=== PATIENT | male | born 1940 | race Caucasian/White ===

== ENCOUNTER 2019-09-26 14:09 | Outpatient (CLI) | payer MEDICARE, BC ==
[~2019-09-26 14:09] MED LIST: Magnevist 469MG/ML 20 ML VIAL ONE
--- NOTE | 2019-09-26 15:54 | MRI ---
MR OF THE PELVIS WITH AND WITHOUT CONTRAST INDICATION: Elevated PSA with history of a prostate biopsy one year ago. COMPARISON: None TECHNIQUE: Multiplanar, multisequence MR images were obtained of the pelvis with and without IV contr ast. 18 cc of MultiHance was utilized for the examination. The examination was reviewed on a separate [employer] 3-D workstation for multiplanar metric evaluation. FINDINGS: Prostate size: The prostate measured 4.4 x 3.4 x 3.7cm. 26.88 cc. Peripheral zone: No area of restricted diffusion is seen within the peripheral zone. Mild wavy areas of diminished T2 signal are seen within the peripheral zone which can be seen following prostatitis. Central zone: No suspicious signal abnormality or focal lesion. There are numerous BPH nodule seen wi thin the central zone. Neural vasculature: No evidence of neurovascular invasion Regional lymphadenopathy: None Dynamic contrast enhancement: Negative. Osseous structures: No suspicious osseous lesion is identified. Additional findings: There is scattered colonic diverticulosis. There is mild circumferential wall th ickening of the bladder.. IMPRESSION: 1. PIRADS 2- Low (clinically significant cancer is unlikely to be present.) 2. Mild wall thickening of the bladder may reflect prior therapy changes from the patient's history o f bladder cancer. 3. Colonic diverticulosis
== END 2019-09-26 14:10 | disposition home or self-care (01) ==
LOC: TBSIIMAG 14:09
PROVIDERS: ATTEND Urology
DX: R97.20 Elevated prostate specific antigen [PSA] (principal); K57.30 Diverticulosis of large intestine without perforation or abscess without bleeding; N32.89 Other specified disorders of bladder
CPT/HCPCS: 72197; 82565; A9579

== ENCOUNTER 2019-11-04 20:15 | Observation (INO) | payer MEDICARE, BC ==
[~2019-11-04 20:15] MED LIST changes: +Iopamidol-370 76% 500 ML 1 ML ONE; -Magnevist 469MG/ML 20 ML VIAL ONE
[2019-11-04 21:27] LABS: Bilirubin Negative (Negative); Blood, Urine Negative (Negative); Clarity Clear (Clear); Glucose, Urine (Dipstick) Normal (Negative); Leukocyte Negative Leu/uL (Negative); Nitrite Negative (Negative); Protein, Urine (Dipstick) Negative (Neg-Trace); Urobilinogen Normal mg/dL (Less than 2)
[2019-11-04 21:28] LABS: #Eosinphils 0.4 thou/uL (0.0-0.7); #Lymphocytes 1.5 thou/uL (1.20-3.40); #Monocytes 0.7 thou/uL (0.11-0.59); #Neutrophils 6.3 thou/uL (1.40-6.50); %Basophils 0.5 % (0.0-1.0); %Eosinophils 4.3 % (0.0-10.0); %Lymphocytes 16.7 % (21.0-51.0); %Neutrophils 70.5 % (42.0-75.0); Hemoglobin 15.5 g/dL (14.0-18.0); Mean Corpuscular HGB CONC 32.9 g/dL (32.0-36.0); Mean Corpuscular Hemoglobin 30.7 pg (27.0-31.0); Mean Corpuscular Volume 93.3 fL (78.0-98.0); Mean Platelet Volume 6.5 fL (7.4-10.4); Platelet Count 310 thou/uL (130-400); RBC Distribution Width 12.7 % (11.5-14.5); Red Blood Cell (RBC) Count 5.04 mill/uL (4.70-6.10); White Blood Cell (WBC) Count 8.9 thou/uL (4.8-10.8)
--- NOTE | 2019-11-04 21:28 | CT ---
CT Brain WO Con HISTORY: Seizure. COMPARISON: 05/07/2010 study. FINDINGS: There is mild ventricular and sulcal prominence. There are no signs of intracerebral hemorr tricia or extra-axial fluid collections. The mastoid air cells are clear. There is mild ethmoid and maxillary sinus mucosal disease. IMPRESSION: No acute intracranial abnormalities.
[2019-11-04] MEDS ORDERED: levETIRAcetam In NaCl (Iso-Os) 1,000 MG in Premix Bag 1 BAG IVPB SCH (21:30)
--- NOTE | 2019-11-04 21:30 | RAD ---
XR Chest 1 View Portable HISTORY: Syncope COMPARISON: None. FINDINGS: Heart size within normal limits. There are atherosclerotic changes of aorta. The lungs are clear of infiltrates. Arthritic changes of both shoulders noted. IMPRESSION: No active intrathoracic disease.
[2019-11-04 21:40] LABS: ALT (SGPT) 15 U/L (8-55); AST (SGOT) 17 U/L (5-34); Alkaline Phosphatase 69 U/L (40-110); Anion Gap 19 mmol/L (10-20); BUN (Urea Nitrogen) 15 mg/dL (8.4-25.7); Bilirubin, Total 0.2 mg/dL (0.2-1.2); CK (CPK) 113 U/L (30-200); Calc. Creatinine Clearance 0 mL/min (70-130); Calcium 9.3 mg/dL (7.8-10.44); Carbon Dioxide 21 mmol/L (23-31); Chloride 105 mmol/L (98-107); Estimated GFR-MDRD 86; Globulin 3.2 g/dL (2.4-3.5); Glucose 102 mg/dL (83-110); Lipase 65 U/L (8-78); Potassium 3.9 mmol/L (3.5-5.1); Protein, Total 7.2 g/dL (5.8-8.1); Sodium 141 mmol/L (136-145)
--- NOTE | 2019-11-04 22:13 | CT ---
CTA Angio Chest W WO Con HISTORY: Syncopal episode. COMPARISON: None. FINDINGS: The lungs are clear of any infiltrative process. No pulmonary nodules are identified. No pl eural effusions. No significant mediastinal or hilar lymphadenopathy. The thoracic aorta is mildly tortuous but normal in caliber. There is good pulmonary artery opacification, there is no CT evidence for pulmonary embolus. Visualized liver parenchyma shows no focal findings. The gallbladder has been removed. IMPRESSION: No CT evidence for pulmonary embolus.
[2019-11-05] MEDS ORDERED: Ondansetron PF 4 MG/2 ML Vial IVP PRN ×2 (00:12→07:26)
[2019-11-05] MEDS ORDERED: Sodium Chloride 0.9% 1,000 ML IV SCH (00:12)
[2019-11-05] MEDS ORDERED: Ondansetron ODT 4 MG TAB SL PRN (00:12)
[2019-11-05] MEDS ORDERED: Lorazepam 2 MG/ML VIAL SLOW IVP PRN (00:12)
[2019-11-05 01:38] LABS: Troponin I Less than 0.010 ng/mL (< 0.028)
[2019-11-05 02:13] VITALS: BMI 24.9
[2019-11-05 04:17] LABS: Troponin I Less than 0.010 ng/mL (< 0.028)
[2019-11-05] MEDS ORDERED: Calcium Carbonate 500 MG ChewTAB PO PRN (07:22)
[2019-11-05] MEDS ORDERED: Acetaminophen 325 MG TAB PO PRN (07:22)
[2019-11-05] MEDS ORDERED: Zolpidem Tartrate 5 MG TAB PO PRN (07:22)
[2019-11-05] MEDS ORDERED: Loperamide HCl 2 MG CAP PO PRN (07:22)
[2019-11-05] MEDS ORDERED: Bisacodyl 10 MG SUPP PR PRN (07:22)
[2019-11-05] MEDS ORDERED: Loratadine 10 MG TAB PO PRN (07:23)
[2019-11-05] MEDS ORDERED: Diabetic Tussin 200 MG/10 ML UDCUP PO PRN (07:23)
[2019-11-05] MEDS ORDERED: Cepastat Lozenges 1 LOZ PO PRN (07:23)
[2019-11-05] MEDS ORDERED: hydrALAZINE 20 MG/ML VIAL SLOW IVP PRN (07:23)
[2019-11-05] MEDS ORDERED: Senokot S 8.6-50 MG TAB PO PRN (07:23)
[2019-11-05] MEDS ORDERED: Artificial Tears 18 DROP/0.9 ML EA EYE PRN (07:23)
[2019-11-05] MEDS ORDERED: Sodium Chloride 0.65% Nasal 44 ML BOT EA NARE PRN (07:23)
[2019-11-05] MEDS ORDERED: Ondansetron ODT 4 MG TAB PO PRN (07:26)
--- NOTE | 2019-11-05 08:53 | ULT ---
Carotid duplex sonogram HISTORY: Syncope. Vascular disease. FINDINGS: Right: Minimal plaque. Color and spectral Doppler evaluation, peak systolic velocity of 84 cm/s, and IC to CC ratio 1.1 suggest no hemodynamically significant stenosis within the extracranial right ICA. Antegrade flow within the vertebral artery. Left: Color and spectral Doppler evaluation, peak systolic velocity of 90 cm/s, and IC to CC ratio 1. 1 suggest no hemodynamically significant stenosis within the extracranial left ICA. Antegrade flow within the vertebral artery. IMPRESSION: Normal exam.
[2019-11-05] MEDS ORDERED: levETIRAcetam 500 mg/5 ml Oral Solution PO SCH (09:00)
[2019-11-05] MEDS ORDERED: Atorvastatin Calcium 10 MG TAB PO SCH ×2 (09:00→21:00)
[2019-11-05] MEDS: Enoxaparin Sodium 40 MG/0.4 ML SYRINGE SC SCH (09:04)
[2019-11-05] MEDS: Vit A,C & E/Lutein/Minerals Tablet PO SCH ×2 (09:04→21:21)
[2019-11-05] MEDS: levETIRAcetam 500 mg/5 ml Oral Solution PO SCH ×2 (09:04→21:17)
[2019-11-05] MEDS: Famotidine 20 MG TAB PO SCH ×2 (09:04→21:22)
[2019-11-05] MEDS: Levothyroxine Sodium 50 MCG TAB PO SCH (09:05)
--- NOTE | 2019-11-05 10:11 | PDOC.EVN ---
Event Note - Event Note Event Note: pt seen and examined, H & P to follow
--- NOTE | 2019-11-05 10:45 | MRI ---
MRI BRAIN WITH AND WITHOUT IV CONTRAST: HISTORY: Seizure COMPARISON: 05/07/2010 CORRELATION:CT scan of previous day FINDINGS: No restricted diffusion is seen. No evidence of infarct, hemorrhage, mass, midline shift or abnormal extra-axial fluid collections is noted. No abnormal postcontrast enhancement is seen. The ventricular size is appropriate and the basilar cisterns are patent. There are few foci of T2 prolongation in the periventricular white matter, consistent with mild chron ic small vessel ischemic disease. There is mucosal disease in the paranasal sinuses. IMPRESSION: No evidence of acute intracranial process or mass.
--- NOTE | 2019-11-05 11:48 | CON ---
DATE OF CONSULTATION: 11/05/2019 CONSULTING PHYSICIAN: Hospitalist Service. IMPRESSION: Recurrent seizure. PLAN: 1. Increase Keppra to 750 mg twice a day. 2. Office followup. HISTORY OF PRESENT ILLNESS: Mr. Bruner is a 79-year-old gentleman, who has a history of blackouts dating back to 2000. He was initially evaluated by Dr. Garcia. His diagnosis was not definitively confirmed until several years later. In 2010, he was started on Dilantin. He was having side effects to it and was switched over to Keppra. He has done reasonably well since then. He reports that in October, his witnessed an episode with some salivating at the mouth and subsequent trauma to his tongue and incontinence of urine. He was very difficult to arouse. They did not seek any changes in treatment at that point just prior to this admission. He was standing in the bathroom when he lost consciousness suddenly. His found him on the floor. He does not recall several minutes of events. She helped him up to the toilet seat, where he subsequently woke up. He has been incontinent of both bowel and bladder. He came in here. His prolactin level was 23. His CT scan of the brain was unremarkable. His Keppra level was 9.4. His vital signs have been stable with some diastolic pressures are in the mid 90s. He has been afebrile. He is without any particular complaints at this point. PAST MEDICAL HISTORY: Hypertension, hypothyroidism, and seizure disorder. ALLERGIES: SULFA, PENICILLIN. SOCIAL HISTORY: No tobacco or alcohol. FAMILY HISTORY: Noncontributory. REVIEW OF SYSTEMS: Ten-system review of systems is otherwise negative. PHYSICAL EXAMINATION: GENERAL: He is a healthy-appearing elderly gentleman, in no distress. VITAL SIGNS: Blood pressure 177/97, pulse 83, respirations 16, and temperature 98. HEENT: Pupils are equal and reactive. Conjunctivae are clear. Cranium, mild abrasion on the forehead noted. NECK: Supple. EXTREMITIES: No cyanosis, clubbing, or edema. NEUROLOGIC: He is alert and appropriate. His speech is fluent and clear. Cranial nerves are intact. He has equal strength. Sensations intact. No abnormal movements were seen. The gait is steady and narrow based. LABORATORY STUDIES: Unremarkable CBC. TSH was 1.95. Urine was clear. SUMMARY: This is a 79-year-old gentleman with a known seizure disorder. He had a breakthrough seizure and a relatively low Keppra level. I agree with the increase in dose. We will be happy to follow up with him as an outpatient. Job ID: [id number]
--- NOTE | 2019-11-05 18:32 | HP ---
PRIMARY CARE PHYSICIAN: [facility]. REASON FOR ADMISSION: Seizure. HISTORY OF PRESENT ILLNESS: A 79-year-old male with past medical history of seizure disorder, who is taking Keppra, who was brought to emergency room because the patient was found on the floor. The patient reports that he went to his closet and when he banded and suddenly, he lost consciousness and he found on his closet by his and subsequently with the help of neighbor, he was taken and then the patient regained consciousness at that time. He found himself on toilet seat, the patient had incontinence of both bowel and bladder. Prolactin level was elevated when he arrived to emergency room and CT brain was unremarkable. His Keppra level was 9.4. The patient was otherwise hemodynamically stable. In the emergency room, the patient had a CT angiography, which was negative for PE and chest x-ray was normal. Subsequently, the patient had carotid Doppler and MRI, which came back normal. Echocardiography also came back normal. This patient has a history of seizure disorder and his workup in the past was unremarkable. He was initially followed by Dr. Garcia and subsequently, he was started on Dilantin, but he did not tolerate it well and that is why he was kept on Keppra, and with Keppra, he was doing much better up until now. PAST MEDICAL HISTORY: Hypertension, hypothyroidism, seizure disorder. PAST SURGICAL HISTORY: Double hernia repair, partial thyroidectomy, cholecystectomy. PAST PSYCHIATRIC HISTORY: Anxiety and depression. ALLERGIES: SULFA AND PENICILLIN. SOCIAL HISTORY: The patient is , lives at home with his . The patient drinks 3-4 glasses of wine, but no smoking. No alcohol. FAMILY HISTORY: No family history of coronary artery disease, stroke, or cancer. REVIEW OF SYSTEMS: CONSTITUTIONAL: Negative for weight loss or gain, ability to conduct usual activities. SKIN: Negative for rash, itching. EYES: Negative for double vision, pain. ENT/MOUTH: Negative for nose bleeding, neck stiffness, pain, tenderness. CARDIOVASCULAR: Negative for palpitations, dyspnea on exertion, orthopnea. RESPIRATORY: Negative for shortness of breath, wheezing, cough, hemoptysis, fever or night sweats. GASTROINTESTINAL: Negative for poor appetite, abdominal pain, heartburn, nausea, vomiting, constipation, or diarrhea. GENITOURINARY: Negative for urgency, frequency, dysuria, nocturia. MUSCULOSKELETAL: Negative for pain, swelling. NEUROLOGIC/PSYCHIATRIC: Negative for anxiety, depression. ALLERGY/IMMUNOLOGIC: Negative for skin rash, bleeding tendency. Please see my HPI for pertinent positives and negatives. All other review of systems reviewed and negative except as mentioned in HPI. HOME MEDICATIONS: 1. Lipitor 10 mg p.o. daily. 2. Keppra 500 mg p.o. b.i.d. 3. Synthroid 50 mcg p.o. daily. 4. PreserVision vitamin 1 tablet p.o. daily. EMERGENCY ROOM COURSE: The patient was given Keppra 1000 mg and IV fluid. PHYSICAL EXAMINATION: VITAL SIGNS: On arrival, blood pressure 162/86, pulse 62, respiratory rate 18, temperature 98.6, saturation 98% on room air. Weight 68 kg. GENERAL: The patient is alert and oriented x3. HEENT: Head, normocephalic and atraumatic. Eyes, pupils round, reactive to light. Extraocular muscle intact. ENT, oropharynx within normal limits. Moist mucous membranes. No oral lesion. No pharyngeal erythema. No exudate. NECK: Supple. No JVD. No meningeal signs of irritation. LUNGS: Clear to auscultation without any rhonchi or rales. CARDIAC: S1 and S2 regular. No murmur. No gallop. No rub. ABDOMEN: Soft, bowel sounds present, nontender, nondistended. No organomegaly. No mass. EXTREMITIES: No edema. NEUROLOGIC: Nonfocal examination. SIGNIFICANT LABORATORY DATA: CBC; WBC 8.9, hemoglobin 15.5, platelet 310. D-dimer 0.49. BMP; sodium 141, potassium 3.9, chloride 105, carbon dioxide 21, BUN 15, creatinine 0.86, glucose 102, calcium 9.3. LFT; AST 17, ALT 15, alkaline phosphatase 69, albumin 4.0. Troponin 0.020, CK 113. BNP 35.6. Ammonia 51, prolactin 23.1, TSH 1.95. Urinalysis normal. Keppra level 9.4. CT brain, no acute intracranial process. CT angio, no PE. Chest x-ray normal. MRI brain, no acute intracranial process. Carotid Doppler, no acute stenosis. Echocardiography showed normal EF. ASSESSMENT: 1. Syncope, most likely related with a seizure. 2. Recurrent seizure with current episode most likely explained by seizure. 3. Dyslipidemia. 4. Hypothyroidism. PLAN: 1. The patient's workup so far completely negative. We will observe 24 hour. Neurologic consultation is already done. We will increase Keppra to 750 mg twice daily. We will consider discharging him home tomorrow. Home medication reconciled. Plan of care discussed with the patient. 2. Deep venous thrombosis prophylaxis, Lovenox 40 mg subcu daily. 3. GI prophylaxis, Pepcid 20 mg p.o. b.i.d. CODE STATUS: The patient is full code. DISPOSITION PLAN: Within 24 hours. Plan of care discussed with the patient in detail. Job ID: [id number]
[2019-11-06 04:31] LABS: #Basophils 0.1 thou/uL (0.0-0.2); #Eosinphils 0.3 thou/uL (0.0-0.7); #Lymphocytes 1.5 thou/uL (1.20-3.40); #Monocytes 0.8 thou/uL (0.11-0.59); #Neutrophils 4.2 thou/uL (1.40-6.50); %Basophils 0.9 % (0.0-1.0); %Eosinophils 4.8 % (0.0-10.0); %Lymphocytes 21.9 % (21.0-51.0); %Monocytes 11.4 % (0.0-10.0); Hemoglobin 14.5 g/dL (14.0-18.0); Mean Corpuscular HGB CONC 32.4 g/dL (32.0-36.0); Mean Corpuscular Hemoglobin 30.9 pg (27.0-31.0); Mean Corpuscular Volume 95.1 fL (78.0-98.0); Platelet Count 252 thou/uL (130-400); RBC Distribution Width 12.7 % (11.5-14.5); Red Blood Cell (RBC) Count 4.69 mill/uL (4.70-6.10); White Blood Cell (WBC) Count 6.8 thou/uL (4.8-10.8)
[2019-11-06 04:54] LABS: Anion Gap 11 mmol/L (10-20); BUN (Urea Nitrogen) 11 mg/dL (8.4-25.7); Calc. Creatinine Clearance 74 mL/min (70-130); Calcium 8.3 mg/dL (7.8-10.44); Carbon Dioxide 27 mmol/L (23-31); Chloride 107 mmol/L (98-107); Estimated GFR-MDRD 90; Glucose 91 mg/dL (83-110); Potassium 3.7 mmol/L (3.5-5.1); Sodium 141 mmol/L (136-145)
[2019-11-06 07:55] VITALS: BP 158/93; TEMP 97.4
[2019-11-06] MEDS: Levothyroxine Sodium 50 MCG TAB PO SCH (09:13)
[2019-11-06] MEDS: levETIRAcetam 500 mg/5 ml Oral Solution PO SCH (09:13)
[2019-11-06] MEDS: Vit A,C & E/Lutein/Minerals Tablet PO SCH (09:13)
[2019-11-06] MEDS: Enoxaparin Sodium 40 MG/0.4 ML SYRINGE SC SCH (09:16)
--- NOTE | 2019-11-06 10:09 | DIS ---
DATE OF ADMISSION: 11/04/2019 DATE OF DISCHARGE: 11/06/2019 PRIMARY CARE PHYSICIAN: [facility] Admission. DISCHARGE DISPOSITION: Home. PRIMARY DISCHARGE DIAGNOSIS: Syncope/seizure. SECONDARY DISCHARGE DIAGNOSES: 1. Hypothyroidism. 2. Dyslipidemia. 3. Seizure disorder. PRIMARY PROCEDURE/OPERATION: None. RADIOLOGICAL INVESTIGATION: CT brain negative for any acute intracranial process. CT angiography, which was done for elevated D-dimer, negative for any pulmonary embolism. Chest x-ray negative for any acute cardiopulmonary process. Carotid Doppler negative for any stenosis. MRI brain negative for any acute process. Echocardiography showed normal EF. SIGNIFICANT LABORATORY DATA: WBC 6.8, hemoglobin 14.5, and platelets are 252. D-dimer 0.49. Sodium 141, potassium 3.7, BUN 11, creatinine 0.83, calcium 8.3. Cardiac enzyme, negative. Prolactin 23.1. TSH 1.95. Urinalysis, normal urine. Keppra level, 9.4. DISCHARGE MEDICATIONS: 1. Keppra 750 mg p.o. b.i.d. 2. Synthroid 50 mcg p.o. daily. 3. Lipitor 10 mg daily. 4. Multivitamin one capsule p.o. b.i.d. CONTRAINDICATION: None. CODE STATUS: Full code. INPATIENT ENDLESS BELT FINISHER: Dr. Lyles, Neurology was consulted while in hospital. TEST RESULT PENDING ON DISCHARGE: None. ALLERGIES: SULFA AND PENICILLIN. DISCHARGE PLAN: Posthospital, the patient will follow up with Neurology as instructed. HOSPITAL COURSE: A 79-year-old male with above-mentioned medical problem, who was admitted by me. Please see my HPI for further details. The patient was having sudden syncope/seizure in his closet and the patient lost consciousness for short time. There was an elevated prolactin level and Keppra level was slightly low and suspected seizure activity. The patient was evaluated in the emergency room. He had slightly elevated D-dimer and that is why CT angio was negative. Chest x-ray was normal and CT brain was normal. MRI brain, carotid Doppler, and echocardiography, all tests came back normal. The patient was evaluated by Neurology as well. The patient was completely asymptomatic while in hospital and he did not have any further syncopal or seizure activity and his telemetry remained unremarkable. The patient was seen and examined at bedside today. PHYSICAL EXAMINATION: VITAL SIGNS: Currently, temperature 97.4, pulse rate 62, respiratory rate 20, saturation 98% on room air, blood pressure 158/93, weight 154 pounds. GENERAL: The patient is currently alert and oriented x3. HEENT: HEAD , normocephalic and atraumatic. Eyes; pupils are round and reactive to light. Extraocular muscle intact. ENT, oropharynx within normal limits. Moist mucous membranes. No oral lesion. No pharyngeal erythema. No exudate. NECK: Supple. No JVD. No meningeal signs of irritation. LUNGS: Clear to auscultation without any rhonchi or rales. CARDIAC: S1 and S2, regular without any murmur. No gallop. No rub. ABDOMEN: Soft, bowel sounds present, nontender, and nondistended. No organomegaly. No mass. EXTREMITIES: No edema. NEUROLOGIC: Nonfocal examination. Overall, the patient is medically stable for discharge today. Job ID: [id number]
[2019-11-06] MEDS: Famotidine 20 MG TAB PO SCH (21:47)
== END 2019-11-06 12:32 | disposition home or self-care (01) ==
LOC: ERS 20:15 → INTOOBSV 22:19 → 2SE 22:19 → ERS 23:44
PROVIDERS: ADMIT Internal Medicine; ATTEND Internal Medicine
DX: G40.909 Epilepsy, unspecified, not intractable, without status epilepticus (principal); R55 Syncope and collapse; I10 Essential (primary) hypertension; F41.9 Anxiety disorder, unspecified; F32.9 Major depressive disorder, single episode, unspecified; E78.5 Hyperlipidemia, unspecified; E89.0 Postprocedural hypothyroidism; Z79.899 Other long term (current) drug therapy; Z88.0 Allergy status to penicillin; Z88.2 Allergy status to sulfonamides
CPT/HCPCS: 70450; 70553; 71045; 71275; 80048; 80177; 81003; 82140; 82550; 83690; 83880; 84146; 84484 ×3; 85025; 85379; 93005; 93306; 93880; 96365; 99285; G0378; 36415; 80053; 84443; J1650; J1953; Q9967

== ENCOUNTER 2022-08-05 08:30 | Outpatient (CLI) | payer MEDICARE, BC ==
[2022-08-05] MEDS ORDERED: Magnevist 469MG/ML 20 ML VIAL ONE (15:05)
== END 2022-08-05 08:31 | disposition home or self-care (01) ==
LOC: TBSIIMAG 08:30
PROVIDERS: ATTEND Urology
DX: R97.20 Elevated prostate specific antigen [PSA] (principal); K57.30 Diverticulosis of large intestine without perforation or abscess without bleeding
CPT/HCPCS: 72197; 82565; A9579

== ENCOUNTER 2022-12-15 08:27 | Inpatient (IN) | payer MEDICARE, BC ==
[2022-12-15] MEDS ORDERED: Iopamidol-370 76% 500 ML 1 ML ONE (09:43)
[2022-12-15 10:30] LABS: #Basophils 0.1 thou/uL (0.0-0.2); #Eosinphils 0.3 thou/uL (0.0-0.7); #Lymphocytes 1.4 thou/uL (1.20-3.40); #Monocytes 0.9 thou/uL (0.11-0.59); #Neutrophils 6.1 thou/uL (1.40-6.50); %Basophils 0.8 % (0.0-1.0); %Eosinophils 3.1 % (0.0-10.0); %Lymphocytes 15.7 % (21.0-51.0); %Monocytes 10.6 % (0.0-10.0); %Neutrophils 69.8 % (42.0-75.0); Hemoglobin 16.2 g/dL (14.0-18.0); Mean Corpuscular HGB CONC 33.7 g/dL (32.0-36.0); Mean Corpuscular Volume 97.9 fl (78.0-98.0); Mean Platelet Volume 6.2 fL (7.4-10.4); Platelet Count 366 10x3/uL (130-400); RBC Distribution Width 12.2 % (11.5-14.5); Red Blood Cell (RBC) Count 4.92 mill/uL (4.70-6.10); White Blood Cell (WBC) Count 8.8 10x3/uL (4.8-10.8)
[2022-12-15 10:52] LABS: ALT (SGPT) 15 U/L (8-55); AST (SGOT) 18 U/L (5-34); Alkaline Phosphatase 70 U/L (40-110); Anion Gap 13 mmol/L (10-20); BUN (Urea Nitrogen) 16 mg/dL (8.4-25.7); Bilirubin, Total 0.6 mg/dL (0.2-1.2); Calc. Creatinine Clearance 0 mL/min (70-130); Calcium 9.6 mg/dL (7.8-10.44); Carbon Dioxide 27 mmol/L (23-31); Chloride 104 mmol/L (98-107); Estimated GFR 84; Globulin 3.7 g/dL (2.4-3.5); Glucose 100 mg/dL (83-110); Lipase 48 U/L (8-78); Potassium 5.3 mmol/L (3.5-5.1); Protein, Total 7.7 g/dL (5.8-8.1); Sodium 139 mmol/L (136-145)
[2022-12-15] MEDS ORDERED: Cefepime 2 GM VIAL ONE (13:08)
[2022-12-15] MEDS ORDERED: Ondansetron ODT 4 MG TAB PO PRN (14:10)
[2022-12-15] MEDS ORDERED: Acetaminophen 325 MG TAB PO PRN (14:10)
[2022-12-15] MEDS ORDERED: Acetaminophen 650 MG Suppository PR PRN (14:10)
[2022-12-15] MEDS ORDERED: Ondansetron PF 4 MG/2 ML Vial IVP PRN (14:10)
[2022-12-15 14:36] VITALS: BMI 23.7
[2022-12-15] MEDS ORDERED: metroNIDAZOLE 500 MG in Premix Bag 1 BAG IVPB SCH (14:45)
[2022-12-15] MEDS: Atorvastatin Calcium 10 MG TAB PO SCH (21:01)
[2022-12-15] MEDS: levETIRAcetam 500 MG TAB PO SCH (21:01)
[2022-12-15] MEDS: cefTRIAXone\\ROCEPHIN 1 GM in Sodium Chloride 0.9% 100 ML IVPB SCH (21:01)
[2022-12-15] MEDS ORDERED: diphenhydrAMINE 25 MG CAP PO SCH (21:45)
[2022-12-15] MEDS: metroNIDAZOLE 500 MG in Premix Bag 1 BAG IVPB SCH (21:54)
[2022-12-16] MEDS: metroNIDAZOLE 500 MG in Premix Bag 1 BAG IVPB SCH ×3 (05:02→21:05)
[2022-12-16] MEDS: Levothyroxine Sodium 50 MCG TAB PO SCH (05:02)
[2022-12-16 06:31] LABS: #Eosinphils 0.3 thou/uL (0.0-0.7); #Lymphocytes 1.2 thou/uL (1.20-3.40); #Monocytes 0.7 thou/uL (0.11-0.59); #Neutrophils 5.5 thou/uL (1.40-6.50); %Basophils 0.6 % (0.0-1.0); %Eosinophils 4.2 % (0.0-10.0); %Lymphocytes 15.5 % (21.0-51.0); %Monocytes 9.1 % (0.0-10.0); %Neutrophils 70.6 % (42.0-75.0); Hemoglobin 14.4 g/dL (14.0-18.0); Mean Corpuscular HGB CONC 33.7 g/dL (32.0-36.0); Mean Corpuscular Hemoglobin 32.8 pg (27.0-31.0); Mean Corpuscular Volume 97.3 fl (78.0-98.0); Mean Platelet Volume 6.2 fL (7.4-10.4); Platelet Count 325 10x3/uL (130-400); RBC Distribution Width 12.2 % (11.5-14.5); Red Blood Cell (RBC) Count 4.38 mill/uL (4.70-6.10); White Blood Cell (WBC) Count 7.8 10x3/uL (4.8-10.8)
[2022-12-16 06:54] LABS: Anion Gap 11 mmol/L (10-20); BUN (Urea Nitrogen) 10 mg/dL (8.4-25.7); Calc. Creatinine Clearance 73 mL/min (70-130); Calcium 8.5 mg/dL (7.8-10.44); Carbon Dioxide 25 mmol/L (23-31); Chloride 107 mmol/L (98-107); Estimated GFR 91; Glucose 96 mg/dL (83-110); Potassium 3.9 mmol/L (3.5-5.1); Sodium 139 mmol/L (136-145)
[2022-12-16] MEDS: levETIRAcetam 500 MG TAB PO SCH ×2 (08:25→20:17)
[2022-12-16] MEDS: cefTRIAXone\\ROCEPHIN 1 GM in Sodium Chloride 0.9% 100 ML IVPB SCH (20:17)
[2022-12-16] MEDS: Atorvastatin Calcium 10 MG TAB PO SCH (20:17)
[2022-12-17] MEDS: Levothyroxine Sodium 50 MCG TAB PO SCH (05:12)
[2022-12-17] MEDS: metroNIDAZOLE 500 MG in Premix Bag 1 BAG IVPB SCH (05:12)
[2022-12-17 06:33] LABS: #Eosinphils 0.3 thou/uL (0.0-0.7); #Lymphocytes 1.3 thou/uL (1.20-3.40); #Monocytes 0.7 thou/uL (0.11-0.59); #Neutrophils 4.4 thou/uL (1.40-6.50); %Basophils 0.7 % (0.0-1.0); %Eosinophils 3.8 % (0.0-10.0); %Monocytes 10.5 % (0.0-10.0); Hemoglobin 14.1 g/dL (14.0-18.0); Mean Corpuscular Hemoglobin 33.3 pg (27.0-31.0); Mean Corpuscular Volume 98.1 fl (78.0-98.0); Mean Platelet Volume 6.3 fL (7.4-10.4); Platelet Count 321 10x3/uL (130-400); RBC Distribution Width 12.3 % (11.5-14.5); Red Blood Cell (RBC) Count 4.22 mill/uL (4.70-6.10); White Blood Cell (WBC) Count 6.7 10x3/uL (4.8-10.8)
[2022-12-17 06:54] LABS: Anion Gap 12 mmol/L (10-20); BUN (Urea Nitrogen) 10 mg/dL (8.4-25.7); Calc. Creatinine Clearance 74 mL/min (70-130); Calcium 8.6 mg/dL (7.8-10.44); Carbon Dioxide 24 mmol/L (23-31); Chloride 109 mmol/L (98-107); Estimated GFR 91; Glucose 98 mg/dL (83-110); Potassium 3.8 mmol/L (3.5-5.1); Sodium 141 mmol/L (136-145)
[2022-12-17 08:10] VITALS: TEMP 97.6
[2022-12-17] MEDS: levETIRAcetam 500 MG TAB PO SCH (08:33)
[2022-12-17 11:40] VITALS: BP 129/76
== END 2022-12-17 11:56 | disposition home or self-care (01) | DRG 392 ==
LOC: ERS 08:27 → T4-A 12:40
PROVIDERS: ADMIT Family Medicine; ATTEND Internal Medicine
PROC: 0W9G3ZZ Drainage of Peritoneal Cavity, Percutaneous Approach (ICD-10-PCS; principal; 2022-12-16)
DX: K57.20 Diverticulitis of large intestine with perforation and abscess without bleeding (principal); F32.A Depression, unspecified; E03.9 Hypothyroidism, unspecified; F10.10 Alcohol abuse, uncomplicated; Z20.822 Contact with and (suspected) exposure to COVID-19; G40.909 Epilepsy, unspecified, not intractable, without status epilepticus; Z90.49 Acquired absence of other specified parts of digestive tract; Z98.890 Other specified postprocedural states; Z88.2 Allergy status to sulfonamides; Z88.0 Allergy status to penicillin
CPT/HCPCS: 36415; 74177; 80048; 80053; 83605; 83690; 85025; 87070; 87205; 96365; J0692; J0696; J3490; Q9967; U0003; U0005

== ENCOUNTER 2023-01-20 08:13 | Inpatient (IN) | payer MEDICARE, BC ==
[2023-01-20 08:56] LABS: #Eosinphils 0.1 thou/uL (0.0-0.7); #Lymphocytes 0.8 thou/uL (1.20-3.40); #Monocytes 1.4 thou/uL (0.11-0.59); #Neutrophils 8.9 thou/uL (1.40-6.50); %Basophils 0.1 % (0.0-1.0); %Lymphocytes 7.5 % (21.0-51.0); %Monocytes 12.6 % (0.0-10.0); %Neutrophils 78.8 % (42.0-75.0); Hemoglobin 15.5 g/dL (14.0-18.0); Mean Corpuscular HGB CONC 32.4 g/dL (32.0-36.0); Mean Corpuscular Hemoglobin 31.7 pg (27.0-31.0); Mean Corpuscular Volume 97.9 fl (78.0-98.0); Mean Platelet Volume 6.1 fL (7.4-10.4); Platelet Count 352 10x3/uL (130-400); RBC Distribution Width 12.6 % (11.5-14.5); White Blood Cell (WBC) Count 11.3 10x3/uL (4.8-10.8)
[2023-01-20 09:11] LABS: Bilirubin Negative (Negative); Blood, Urine Negative (Negative); Clarity Clear (Clear); Glucose, Urine (Dipstick) Normal (Negative); Ketone, Urine 20 mg/dL (Negative); Leukocyte Negative Leu/uL (Negative); Nitrite Negative (Negative); Protein, Urine (Dipstick) 20 mg/dL (Neg-Trace); Specific Gravity, Urine 1.019 (1.002-1.036); Urobilinogen Normal mg/dL (Less than 2)
[2023-01-20 09:20] LABS: ALT (SGPT) 12 U/L (8-55); AST (SGOT) 14 U/L (5-34); Albumin 3.7 g/dL (3.4-4.8); Alkaline Phosphatase 85 U/L (40-110); Anion Gap 12 mmol/L (10-20); BUN (Urea Nitrogen) 11 mg/dL (8.4-25.7); Bilirubin, Total 0.9 mg/dL (0.2-1.2); Calc. Creatinine Clearance 0 mL/min (70-130); Calcium 9.1 mg/dL (7.8-10.44); Carbon Dioxide 27 mmol/L (23-31); Chloride 101 mmol/L (98-107); Estimated GFR 88; Glucose 105 mg/dL (83-110); Lipase 29 U/L (8-78); Magnesium 2.2 mg/dL (1.6-2.6); Potassium 4.1 mmol/L (3.5-5.1); Protein, Total 7.7 g/dL (5.8-8.1); Sodium 136 mmol/L (136-145)
[2023-01-20] MEDS ORDERED: Iopamidol-370 76% 500 ML MDV (1 ML CHARGE) ONE (09:55)
[2023-01-20] MEDS ORDERED: Calcium Carbonate 500 MG ChewTAB PO PRN (10:21)
[2023-01-20] MEDS ORDERED: Senokot S 8.6-50 MG TAB PO PRN (10:21)
[2023-01-20] MEDS ORDERED: HYDROcodone/Acetaminophen 5/325 mg Tablet PO PRN (10:21)
[2023-01-20] MEDS ORDERED: Ondansetron ODT 4 MG TAB PO PRN (10:21)
[2023-01-20] MEDS ORDERED: Ondansetron PF 4 MG/2 ML Vial IVP PRN (10:21)
[2023-01-20] MEDS ORDERED: Lidocaine 1% w/Epinephrine 1:100K 20 ML VIAL ONE (13:52)
[2023-01-20 14:47] VITALS: BMI 24.2
[2023-01-20] MEDS ORDERED: Piperacillin/Tazobactam 3.375 GM in Sodium Chloride 0.9% 100 ML IVPB SCH (19:00)
[2023-01-20] MEDS: Acetaminophen 325 MG TAB PO PRN (20:39)
[2023-01-20] MEDS: levETIRAcetam 500 MG TAB PO SCH (20:40)
[2023-01-20] MEDS: Atorvastatin Calcium 10 MG TAB PO SCH (20:40)
[2023-01-20] MEDS: Piperacillin/Tazobactam 3.375 GM in Sodium Chloride 0.9% 100 ML IVPB SCH (23:27)
[2023-01-21] MEDS: Levothyroxine Sodium 50 MCG TAB PO SCH (05:38)
[2023-01-21 05:48] LABS: #Eosinphils 0.1 thou/uL (0.0-0.7); #Lymphocytes 0.8 thou/uL (1.20-3.40); #Monocytes 1.3 thou/uL (0.11-0.59); #Neutrophils 9.6 thou/uL (1.40-6.50); %Basophils 0.1 % (0.0-1.0); %Eosinophils 1.2 % (0.0-10.0); %Monocytes 10.7 % (0.0-10.0); Hemoglobin 14.4 g/dL (14.0-18.0); Mean Corpuscular HGB CONC 32.2 g/dL (32.0-36.0); Mean Corpuscular Hemoglobin 31.4 pg (27.0-31.0); Mean Corpuscular Volume 97.4 fl (78.0-98.0); Mean Platelet Volume 6.2 fL (7.4-10.4); Platelet Count 322 10x3/uL (130-400); RBC Distribution Width 12.4 % (11.5-14.5); Red Blood Cell (RBC) Count 4.57 mill/uL (4.70-6.10); White Blood Cell (WBC) Count 11.9 10x3/uL (4.8-10.8)
[2023-01-21 06:05] LABS: ALT (SGPT) 13 U/L (8-55); AST (SGOT) 13 U/L (5-34); Albumin 3.5 g/dL (3.4-4.8); Alkaline Phosphatase 77 U/L (40-110); Anion Gap 13 mmol/L (10-20); BUN (Urea Nitrogen) 13 mg/dL (8.4-25.7); Bilirubin, Total 0.5 mg/dL (0.2-1.2); Calc. Creatinine Clearance 69 mL/min (70-130); Calcium 8.8 mg/dL (7.8-10.44); Carbon Dioxide 24 mmol/L (23-31); Chloride 104 mmol/L (98-107); Estimated GFR 89; Globulin 3.4 g/dL (2.4-3.5); Glucose 109 mg/dL (83-110); Protein, Total 6.9 g/dL (5.8-8.1); Sodium 137 mmol/L (136-145)
[2023-01-21] MEDS: Piperacillin/Tazobactam 3.375 GM in Sodium Chloride 0.9% 100 ML IVPB SCH ×2 (08:09→15:48)
[2023-01-21] MEDS: levETIRAcetam 500 MG TAB PO SCH ×2 (08:10→21:11)
[2023-01-21] MEDS: Acetaminophen 325 MG TAB PO PRN (08:17)
[2023-01-21] MEDS ORDERED: SUGAMMADEX SODIUM 200 MG/2 ML VIAL ONE (11:20)
[2023-01-21] MEDS ORDERED: fentaNYL PF 100 MCG/2 ML SYRINGE ONE (11:20)
[2023-01-21] MEDS ORDERED: NEOSTIGMINE 3 MG/3 ML SYR 3 MG/3 ML SYRINGE ONE (13:06)
[2023-01-21] MEDS ORDERED: PROPOFOL 200 MG/20 ML VIAL ONE (13:06)
[2023-01-21] MEDS ORDERED: Esmolol 100 MG/10 ML VIAL ONE (13:06)
[2023-01-21] MEDS ORDERED: Ondansetron PF 4 MG/2 ML Vial ONE (13:06)
[2023-01-21] MEDS ORDERED: Lidocaine 1% PF 5 ML VIAL ONE (13:06)
[2023-01-21] MEDS ORDERED: Rocuronium Bromide 10 MG/ML (10ML VIAL) ONE (13:06)
[2023-01-21] MEDS ORDERED: Glycopyrrolate 0.2 MG/ML 5 ML SYRINGE ONE (13:06)
[2023-01-21] MEDS ORDERED: Bupivacaine/Epinephrine 0.25% 30 ML VIAL ONE (13:19)
[2023-01-21] MEDS ORDERED: Piperacillin/Tazobactam 3.375 GM VIAL ONE (13:23)
[2023-01-21] MEDS ORDERED: Labetalol HCl 100 MG/20 ML VIAL ONE (13:55)
[2023-01-21] MEDS ORDERED: HYDROcodone/Acetaminophen 7.5/325 mg Tablet PO PRN (14:25)
[2023-01-21] MEDS ORDERED: FENTANYL 50 MCG/ML 1 ML VIAL ONE ×2 (14:51→15:06)
[2023-01-21] MEDS: Atorvastatin Calcium 10 MG TAB PO SCH (21:11)
[2023-01-22] MEDS: Piperacillin/Tazobactam 3.375 GM in Sodium Chloride 0.9% 100 ML IVPB SCH ×3 (01:10→17:16)
[2023-01-22] MEDS: Levothyroxine Sodium 50 MCG TAB PO SCH (05:11)
[2023-01-22] MEDS: Acetaminophen 325 MG TAB PO PRN ×2 (05:13→20:33)
[2023-01-22 07:23] LABS: #Neutrophils 9.7 thou/uL (1.40-6.50); %Basophils 0.1 % (0.0-1.0); %Eosinophils 0.2 % (0.0-10.0); %Lymphocytes 8.5 % (21.0-51.0); %Monocytes 8.2 % (0.0-10.0); %Neutrophils 83.1 % (42.0-75.0); Hemoglobin 14.4 g/dL (14.0-18.0); Mean Corpuscular HGB CONC 32.8 g/dL (32.0-36.0); Mean Corpuscular Hemoglobin 32.4 pg (27.0-31.0); Mean Corpuscular Volume 98.6 fl (78.0-98.0); Mean Platelet Volume 6.3 fL (7.4-10.4); Platelet Count 362 10x3/uL (130-400); RBC Distribution Width 12.4 % (11.5-14.5); Red Blood Cell (RBC) Count 4.44 mill/uL (4.70-6.10); White Blood Cell (WBC) Count 11.6 10x3/uL (4.8-10.8)
[2023-01-22 07:46] LABS: ALT (SGPT) 15 U/L (8-55); AST (SGOT) 13 U/L (5-34); Albumin 3.4 g/dL (3.4-4.8); Alkaline Phosphatase 86 U/L (40-110); Anion Gap 12 mmol/L (10-20); BUN (Urea Nitrogen) 9 mg/dL (8.4-25.7); Bilirubin, Total 0.4 mg/dL (0.2-1.2); Calc. Creatinine Clearance 74 mL/min (70-130); Calcium 8.9 mg/dL (7.8-10.44); Carbon Dioxide 25 mmol/L (23-31); Chloride 103 mmol/L (98-107); Estimated GFR 91; Globulin 3.8 g/dL (2.4-3.5); Glucose 105 mg/dL (83-110); Magnesium 2.1 mg/dL (1.6-2.6); Protein, Total 7.2 g/dL (5.8-8.1); Sodium 136 mmol/L (136-145)
[2023-01-22] MEDS: levETIRAcetam 500 MG TAB PO SCH ×2 (08:18→20:34)
[2023-01-22] MEDS: Amoxicillin/Potassium Clav 875 MG TAB PO SCH (20:33)
[2023-01-22] MEDS: Atorvastatin Calcium 10 MG TAB PO SCH (20:34)
[2023-01-23] MEDS: Acetaminophen 325 MG TAB PO PRN ×2 (02:02→20:12)
[2023-01-23] MEDS: Levothyroxine Sodium 50 MCG TAB PO SCH (06:08)
[2023-01-23] MEDS: traMADol HCl 50 MG TAB PO PRN (06:10)
[2023-01-23 06:33] LABS: #Eosinphils 0.2 thou/uL (0.0-0.7); #Lymphocytes 1.2 thou/uL (1.20-3.40); #Monocytes 0.6 thou/uL (0.11-0.59); #Neutrophils 3.7 thou/uL (1.40-6.50); %Basophils 0.1 % (0.0-1.0); %Eosinophils 3.3 % (0.0-10.0); %Lymphocytes 21.8 % (21.0-51.0); %Monocytes 10.3 % (0.0-10.0); %Neutrophils 64.5 % (42.0-75.0); Hemoglobin 13.4 g/dL (14.0-18.0); Mean Corpuscular HGB CONC 33.4 g/dL (32.0-36.0); Mean Corpuscular Hemoglobin 32.9 pg (27.0-31.0); Mean Corpuscular Volume 98.5 fl (78.0-98.0); Platelet Count 349 10x3/uL (130-400); RBC Distribution Width 12.5 % (11.5-14.5); Red Blood Cell (RBC) Count 4.08 mill/uL (4.70-6.10); White Blood Cell (WBC) Count 5.7 10x3/uL (4.8-10.8)
[2023-01-23] MEDS: levETIRAcetam 500 MG TAB PO SCH ×2 (08:43→20:13)
[2023-01-23] MEDS: Amoxicillin/Potassium Clav 875 MG TAB PO SCH (08:43)
[2023-01-23] MEDS: metroNIDAZOLE 500 MG TAB PO SCH ×2 (16:00→20:14)
[2023-01-23] MEDS: Atorvastatin Calcium 10 MG TAB PO SCH (20:13)
[2023-01-24] MEDS: Levothyroxine Sodium 50 MCG TAB PO SCH (05:44)
[2023-01-24] MEDS: traMADol HCl 50 MG TAB PO PRN (05:48)
[2023-01-24] MEDS: levETIRAcetam 500 MG TAB PO SCH ×2 (09:21→19:51)
[2023-01-24] MEDS: metroNIDAZOLE 500 MG TAB PO SCH ×3 (09:21→19:52)
[2023-01-24] MEDS ORDERED: cloNIDine 0.1 MG TAB PO PRN (09:25)
[2023-01-24] MEDS: Atorvastatin Calcium 10 MG TAB PO SCH (19:51)
[2023-01-24] MEDS ORDERED: Ketorolac Tromethamine 30 MG/ML VIAL IVP SCH (21:45)
[2023-01-24] MEDS ORDERED: Ketorolac Tromethamine 30 MG/ML VIAL IVP PRN (22:01)
[2023-01-25] MEDS: Levothyroxine Sodium 50 MCG TAB PO SCH (06:19)
[2023-01-25] MEDS ORDERED: Hydrocortisone 1% Cream 30 GM TUBE TOP PRN (08:12)
[2023-01-25] MEDS: levETIRAcetam 500 MG TAB PO SCH (09:27)
[2023-01-25] MEDS: metroNIDAZOLE 500 MG TAB PO SCH (09:27)
[2023-01-25] MEDS: traMADol HCl 50 MG TAB PO PRN (09:50)
[2023-01-25 15:23] VITALS: BP 127/81; TEMP 97.4
== END 2023-01-25 15:50 | disposition home health service (06) | DRG 356 ==
LOC: ERS 08:13 → ERHOLD 10:25 → SJJU 14:30
PROVIDERS: ADMIT Internal Medicine; ATTEND Family Medicine
PROC: 0WPF0JZ Removal of Synthetic Substitute from Abdominal Wall, Open Approach (ICD-10-PCS; principal; 2023-01-21)
PROC: 0W9G0ZZ Drainage of Peritoneal Cavity, Open Approach (ICD-10-PCS; 2023-01-21)
PROC: 0J980ZZ Drainage of Abdomen Subcutaneous Tissue and Fascia, Open Approach (ICD-10-PCS; 2023-01-21)
DX: K57.20 Diverticulitis of large intestine with perforation and abscess without bleeding (principal); K65.1 Peritoneal abscess; T85.79XA Infection and inflammatory reaction due to other internal prosthetic devices, implants and grafts, initial encounter; L02.211 Cutaneous abscess of abdominal wall; L02.214 Cutaneous abscess of groin; G40.909 Epilepsy, unspecified, not intractable, without status epilepticus; E78.5 Hyperlipidemia, unspecified; E03.9 Hypothyroidism, unspecified; F10.10 Alcohol abuse, uncomplicated; Y83.8 Other surgical procedures as the cause of abnormal reaction of the patient, or of later complication, without mention of misadventure at the time of the procedure; Z88.2 Allergy status to sulfonamides; Z79.899 Other long term (current) drug therapy; Z79.890 Hormone replacement therapy
CPT/HCPCS: 36415; 36416; 74177; 80053; 81003; 83605; 83690; 83735; 85025; 87040; 87070; 87077; 87086; 87186; 87205; 93005; 97139; J1650; J2405; J2543; J2704; J3010; J3490; Q9967

== ENCOUNTER 2023-04-15 05:37 | Inpatient (IN) | payer MEDICARE, BC ==
[2023-04-15] MEDS ORDERED: Ketorolac Tromethamine 30 MG/ML VIAL ONE (06:20)
[2023-04-15] MEDS ORDERED: Acetaminophen 500 MG TAB ONE (06:20)
[2023-04-15] MEDS ORDERED: Bupivacaine/Epinephrine 0.25% 30 ML VIAL ONE (06:40)
[2023-04-15] MEDS ORDERED: fentaNYL 50 mcg/mL 1 mL Vial ONE (06:48)
[2023-04-15] MEDS ORDERED: Vasopressin 20 UNITS/ML VIAL ONE (06:48)
[2023-04-15] MEDS ORDERED: fentaNYL PF 100 MCG/2 ML SYRINGE ONE (06:48)
[2023-04-15] MEDS ORDERED: Phenylephrine 10 MG/ML VIAL ONE (06:48)
[2023-04-15] MEDS ORDERED: CEFAZOLIN 2 GM VIAL ONE (07:21)
[2023-04-15] MEDS ORDERED: Sodium Chloride 0.9% 100 ML ONE (07:21)
[2023-04-15] MEDS ORDERED: Dexmedetomidine 200 MCG/2 ML VIAL ONE (07:28)
[2023-04-15] MEDS ORDERED: SUGAMMADEX SODIUM 200 MG/2 ML VIAL ONE (07:28)
[2023-04-15] MEDS ORDERED: Ondansetron PF 4 MG/2 ML Vial ONE (07:33)
[2023-04-15] MEDS ORDERED: Lidocaine 1% PF 5 ML VIAL ONE (07:33)
[2023-04-15] MEDS ORDERED: PROPOFOL 200 MG/20 ML VIAL ONE (07:33)
[2023-04-15] MEDS ORDERED: Dexamethasone 20 MG/5 ML VIAL ONE (07:33)
[2023-04-15] MEDS ORDERED: Rocuronium Bromide 10 MG/ML (10ML VIAL) ONE (07:33)
[2023-04-15] MEDS ORDERED: ePHEDrine Sulfate 50 MG/10 ML VIAL ONE (07:33)
[2023-04-15] MEDS ORDERED: Ondansetron PF 4 MG/2 ML Vial IVP PRN (09:26)
[2023-04-15] MEDS ORDERED: Morphine 4 MG/ML VIAL SLOW IVP PRN (09:26)
[2023-04-15] MEDS ORDERED: Dextrose 50% Abboject 50 ML SYRINGE SLOW IVP PRN (09:26)
[2023-04-15] MEDS ORDERED: HYDROcodone/Acetaminophen 7.5/325 mg Tablet PO PRN (09:26)
[2023-04-15] MEDS ORDERED: Dextrose 5% in Water 1,000 ML IV PRN (09:26)
[2023-04-15] MEDS ORDERED: Morphine 2 MG/ML VIAL SLOW IVP PRN (09:26)
[2023-04-15] MEDS ORDERED: Glucagon 1 MG/ML KIT IM PRN (09:26)
[2023-04-15 11:22] VITALS: BMI 23.3
[2023-04-15] MEDS ORDERED: TETANUS, DIPHTHERIA TOX,ADULT (TDVAX) 0.5 ML VIAL IM ONE (12:00)
[2023-04-15] MEDS: Sodium Chloride 0.9% 1,000 ML IV SCH ×2 (12:11→23:21)
[2023-04-15] MEDS: levETIRAcetam 500 MG TAB PO SCH (20:41)
[2023-04-15] MEDS: Vit A,C & E/Lutein/Minerals Tablet PO SCH (20:41)
[2023-04-15] MEDS: Vancomycin 1 GM in Premix Bag 1 BAG IVPB SCH (20:42)
[2023-04-15] MEDS ORDERED: Atorvastatin Calcium 10 MG TAB PO SCH (21:00)
[2023-04-16 06:05] LABS: #Eosinphils 0.1 thou/uL (0.0-0.7); #Monocytes 0.9 thou/uL (0.11-0.59); #Neutrophils 8.1 thou/uL (1.40-6.50); %Basophils 0.3 % (0.0-1.0); %Eosinophils 0.8 % (0.0-10.0); %Lymphocytes 15.2 % (21.0-51.0); %Monocytes 8.5 % (0.0-10.0); %Neutrophils 74.8 % (42.0-75.0); Hemoglobin 13.2 g/dL (14.0-18.0); Mean Corpuscular HGB CONC 32.9 g/dL (32.0-36.0); Mean Corpuscular Volume 94.1 fl (78.0-98.0); Mean Platelet Volume 8.8 fL (7.4-10.4); Platelet Count 316 10x3/uL (130-400); RBC Distribution Width 15.4 % (11.5-14.5); Red Blood Cell (RBC) Count 4.26 mill/uL (4.70-6.10); White Blood Cell (WBC) Count 10.8 10x3/uL (4.8-10.8)
[2023-04-16] MEDS: Vancomycin 1 GM in Premix Bag 1 BAG IVPB SCH ×2 (06:13→06:21)
[2023-04-16] MEDS: Sodium Chloride 0.9% 1,000 ML IV SCH (06:14)
[2023-04-16 07:15] VITALS: TEMP 97.4
[2023-04-16] MEDS: levETIRAcetam 500 MG TAB PO SCH (08:34)
[2023-04-16] MEDS: Vit A,C & E/Lutein/Minerals Tablet PO SCH (08:34)
[2023-04-16] MEDS ORDERED: Levothyroxine Sodium 50 MCG TAB PO SCH (09:00)
[2023-04-16 11:35] VITALS: BP 156/78
== END 2023-04-16 15:12 | disposition home or self-care (01) | DRG 908 ==
LOC: SDC 05:37 → T4-B 11:10 → OBSVTOIN 04-16 14:23
PROVIDERS: ADMIT Specialist; ATTEND Specialist
PROC: 0WPF0JZ Removal of Synthetic Substitute from Abdominal Wall, Open Approach (ICD-10-PCS; principal; 2023-04-15)
PROC: 3E033XZ Introduction of Vasopressor into Peripheral Vein, Percutaneous Approach (ICD-10-PCS; 2023-04-15)
DX: T85.79XA Infection and inflammatory reaction due to other internal prosthetic devices, implants and grafts, initial encounter (principal); L02.214 Cutaneous abscess of groin; E78.00 Pure hypercholesterolemia, unspecified; F32.A Depression, unspecified; Z88.2 Allergy status to sulfonamides; Z98.890 Other specified postprocedural states; Z79.899 Other long term (current) drug therapy; Z82.49 Family history of ischemic heart disease and other diseases of the circulatory system
CPT/HCPCS: 36415; 85025; 87070; 87077; 87186; 87205; 97139; J1100; J1885; J2272; J2370; J2405; J2704; J3010; J3372; J3490; J7050

== ENCOUNTER 2023-04-28 10:30 | Inpatient (IN) | payer MEDICARE, BC ==
[~2023-04-28 10:30] MED LIST changes: -Iopamidol-370 76% 500 ML 1 ML ONE; +Iopamidol-370 76% 500 ML MDV (1 ML CHARGE) ONE
[2023-04-28 11:31] LABS: #Basophils 0.1 thou/uL (0.0-0.2); #Monocytes 1.9 thou/uL (0.11-0.59); #Neutrophils 18.8 thou/uL (1.40-6.50); %Basophils 0.2 % (0.0-1.0); %Lymphocytes 3.4 % (21.0-51.0); %Monocytes 8.6 % (0.0-10.0); %Neutrophils 86.7 % (42.0-75.0); Hemoglobin 11.9 g/dL (14.0-18.0); Mean Corpuscular HGB CONC 32.3 g/dL (32.0-36.0); Mean Corpuscular Hemoglobin 30.1 pg (27.0-31.0); Mean Corpuscular Volume 93.2 fl (78.0-98.0); Mean Platelet Volume 8.3 fL (7.4-10.4); Platelet Count 594 10x3/uL (130-400); RBC Distribution Width 14.7 % (11.5-14.5); Red Blood Cell (RBC) Count 3.95 mill/uL (4.70-6.10); White Blood Cell (WBC) Count 21.7 10x3/uL (4.8-10.8)
[2023-04-28 11:56] LABS: Albumin 3.2 g/dL (3.4-4.8)
[2023-04-28 11:57] LABS: Chloride 100 mmol/L (98-107); Potassium 4.2 mmol/L (3.5-5.1)
[2023-04-28 11:58] LABS: Calcium 8.8 mg/dL (7.8-10.44)
[2023-04-28 11:59] LABS: Globulin 3.8 g/dL (2.4-3.5); Glucose 112 mg/dL (83-110)
[2023-04-28 12:00] LABS: Anion Gap 13 mmol/L (10-20); Bilirubin, Total 0.5 mg/dL (0.2-1.2); Carbon Dioxide 25 mmol/L (23-31)
[2023-04-28 12:01] LABS: Alkaline Phosphatase 95 U/L (40-110)
[2023-04-28 12:02] LABS: Calc. Creatinine Clearance 0 mL/min (70-130); Estimated GFR 89; Sodium 134 mmol/L (136-145)
[2023-04-28 12:03] LABS: BUN (Urea Nitrogen) 11 mg/dL (8.4-25.7)
[2023-04-28 12:04] LABS: AST (SGOT) 15 U/L (5-34)
[2023-04-28 12:05] LABS: ALT (SGPT) 15 U/L (8-55); Lipase 36 U/L (8-78)
[2023-04-28] MEDS ORDERED: Vancomycin 1 GM/200 ML (FROZEN) BAG ONE (12:08)
[2023-04-28] MEDS ORDERED: Piperacillin/Tazobactam 3.375 GM VIAL ONE (12:08)
[2023-04-28 12:11] LABS: Bacteria/HPF None Seen HPF (None Seen); Bilirubin Negative (Negative); Blood, Urine Negative (Negative); CAUTI Indications for Culture Fever or rigors; Calcium Oxalate Crystals 1+ HPF (None Seen); Clarity Clear (Clear); Glucose, Urine (Dipstick) Normal (Negative); Ketone, Urine Negative (Negative); Leukocyte 25 Leu/uL (Negative); Nitrite Negative (Negative); Protein, Urine (Dipstick) Negative (Neg-Trace); RBC/HPF 0-3 HPF (0-3); Specific Gravity, Urine 1.015 (1.002-1.036); Squamous Epithelial None Seen HPF (0-3); Urobilinogen Normal mg/dL (Less than 2); WBC/HPF 0-3 HPF (0-3); pH, Urine 5.5 (5.0-9.0)
[2023-04-28 12:14] LABS: Urine Culture Reflex No No
[2023-04-28] MEDS ORDERED: Ondansetron PF 4 MG/2 ML Vial IVP PRN ×2 (13:00→15:38)
[2023-04-28] MEDS ORDERED: Sodium Chloride 0.9% 1,000 ML IV SCH (13:00)
[2023-04-28] MEDS ORDERED: Ondansetron ODT 4 MG TAB SL PRN (13:00)
[2023-04-28] MEDS ORDERED: Acetaminophen 650 MG Suppository PR PRN (15:38)
[2023-04-28] MEDS ORDERED: Senokot S 8.6-50 MG TAB PO PRN (15:38)
[2023-04-28] MEDS ORDERED: Acetaminophen 325 MG TAB PO PRN (15:38)
[2023-04-28] MEDS ORDERED: Guaifenesin DM 100-10/5 ML UDCUP PO PRN (15:38)
[2023-04-28] MEDS ORDERED: HYDROcodone/Acetaminophen 5/325 mg Tablet PO PRN ×2 (15:38)
[2023-04-28] MEDS ORDERED: Ondansetron ODT 4 MG TAB PO PRN (15:38)
[2023-04-28 16:24] LABS: Lactic Acid 1.8 mmol/L (0.5-2.2)
[2023-04-28] MEDS: Sodium Chloride 0.9% 1,000 ML IV SCH (16:43)
[2023-04-28 17:08] VITALS: BMI 23.1
[2023-04-28] MEDS ORDERED: Piperacillin/Tazobactam 3.375 GM in Sodium Chloride 0.9% 100 ML IVPB SCH (18:00)
[2023-04-28] MEDS: Piperacillin/Tazobactam 3.375 GM in Sodium Chloride 0.9% 100 ML IVPB SCH (18:14)
[2023-04-28] MEDS ORDERED: GoLYTELY 4,000 ml Bottle PO SCH (19:00)
[2023-04-28] MEDS ORDERED: Metoclopramide 10 MG/10 ML UDCUP PO SCH (19:00)
[2023-04-28] MEDS: Erythromycin Base 250 MG TAB PO SCH ×3 (19:39→23:25)
[2023-04-28] MEDS: Famotidine 20 MG TAB PO SCH (19:40)
[2023-04-28] MEDS: Neomycin 500 mg Tablet PO SCH ×3 (19:40→23:25)
[2023-04-28] MEDS: levETIRAcetam 500 MG TAB PO SCH (19:40)
[2023-04-28] MEDS: Atorvastatin Calcium 10 MG TAB PO SCH (20:03)
[2023-04-28] MEDS: Vit A,C & E/Lutein/Minerals Tablet PO SCH (20:28)
[2023-04-28] MEDS ORDERED: Vancomycin 1 GM in Premix Bag 1 BAG IVPB SCH (21:00)
[2023-04-28] MEDS: Metoclopramide 10 MG/10 ML UDCUP PO SCH (23:25)
[2023-04-29] MEDS: Vancomycin HCl 750 MG in Sodium Chloride 0.9% 250 ML 250 ML IVPB SCH ×2 (00:05→13:00)
[2023-04-29] MEDS: Piperacillin/Tazobactam 3.375 GM in Sodium Chloride 0.9% 100 ML IVPB SCH ×3 (01:50→19:45)
[2023-04-29] MEDS ORDERED: Sevoflurane 250 ML INH ANEST BOTTLE ONE (01:53)
[2023-04-29] MEDS: Sodium Chloride 0.9% 1,000 ML IV SCH ×2 (03:57→09:56)
[2023-04-29] MEDS: Levothyroxine Sodium 50 MCG TAB PO SCH (06:37)
[2023-04-29] MEDS: Metoclopramide 10 MG/10 ML UDCUP PO SCH ×4 (06:38→23:49)
[2023-04-29 06:42] LABS: #Basophils 0.1 thou/uL (0.0-0.2); #Monocytes 1.8 thou/uL (0.11-0.59); #Neutrophils 18.1 thou/uL (1.40-6.50); %Basophils 0.3 % (0.0-1.0); %Eosinophils 0.2 % (0.0-10.0); %Lymphocytes 5.2 % (21.0-51.0); %Monocytes 8.5 % (0.0-10.0); %Neutrophils 84.8 % (42.0-75.0); Hemoglobin 10.1 g/dL (14.0-18.0); Mean Corpuscular Hemoglobin 30.1 pg (27.0-31.0); Mean Corpuscular Volume 91.3 fl (78.0-98.0); Mean Platelet Volume 8.5 fL (7.4-10.4); Platelet Count 567 10x3/uL (130-400); RBC Distribution Width 14.6 % (11.5-14.5); Red Blood Cell (RBC) Count 3.35 mill/uL (4.70-6.10); White Blood Cell (WBC) Count 21.4 10x3/uL (4.8-10.8)
[2023-04-29 07:05] LABS: Anion Gap 13 mmol/L (10-20); BUN (Urea Nitrogen) 8 mg/dL (8.4-25.7); Calc. Creatinine Clearance 71 mL/min (70-130); Calcium 8.2 mg/dL (7.8-10.44); Carbon Dioxide 25 mmol/L (23-31); Chloride 105 mmol/L (98-107); Estimated GFR 91; Glucose 109 mg/dL (83-110); INR-International Normal Ratio 1.3; Potassium 3.5 mmol/L (3.5-5.1); Prothrombin Time 17.1 sec (12.0-14.7); Sodium 139 mmol/L (136-145)
[2023-04-29 07:06] LABS: PTT 38.4 sec (22.9-36.1)
[2023-04-29] MEDS: Famotidine 20 MG TAB PO SCH ×2 (08:26→21:56)
[2023-04-29] MEDS: Vit A,C & E/Lutein/Minerals Tablet PO SCH ×2 (08:26→21:57)
[2023-04-29] MEDS: levETIRAcetam 500 MG TAB PO SCH ×2 (08:26→21:56)
[2023-04-29] MEDS ORDERED: EPINEPHrine 1 MG/ML AMP ONE ×2 (13:13→14:25)
[2023-04-29] MEDS ORDERED: Bupivacaine PF 0.5% 30 ML VIAL ONE ×2 (13:13→13:17)
[2023-04-29] MEDS ORDERED: fentaNYL 50 mcg/mL 1 mL Vial ONE ×3 (13:13→18:03)
[2023-04-29] MEDS ORDERED: Midazolam HCl 2 mg/2 ml Vial ONE (13:13)
[2023-04-29] MEDS ORDERED: Lidocaine 1% (PF) 30 ML VIAL ONE (14:25)
[2023-04-29] MEDS ORDERED: Rocuronium Bromide 10 MG/ML (10ML VIAL) ONE (14:53)
[2023-04-29] MEDS ORDERED: PROPOFOL 200 MG/20 ML VIAL ONE (14:53)
[2023-04-29] MEDS ORDERED: Ketorolac Tromethamine 30 MG/ML VIAL ONE (14:53)
[2023-04-29] MEDS ORDERED: Glycopyrrolate 0.2 MG/ML 5 ML SYRINGE ONE (14:53)
[2023-04-29] MEDS ORDERED: PHENYLEPHRINE-NS 100 MCG/ML 10 ML SYRINGE ONE (14:53)
[2023-04-29] MEDS ORDERED: NEOSTIGMINE 3 MG/3 ML SYR 3 MG/3 ML SYRINGE ONE (14:53)
[2023-04-29] MEDS ORDERED: Dexamethasone 20 MG/5 ML VIAL ONE (14:53)
[2023-04-29] MEDS ORDERED: Lidocaine 1% PF 5 ML VIAL ONE (14:53)
[2023-04-29] MEDS ORDERED: Ondansetron PF 4 MG/2 ML Vial ONE (14:53)
[2023-04-29] MEDS ORDERED: Ondansetron HCl/PF 4 MG/2 ML Vial IVP PRN (17:15)
[2023-04-29] MEDS ORDERED: Morphine Sulfate 2 MG/ML SYRINGE SLOW IVP PRN (17:15)
[2023-04-29] MEDS ORDERED: PACU-Morphine 4MG/ML VIAL SLOW IVP PRN (17:15)
[2023-04-29] MEDS ORDERED: HYDROmorphone 2 MG/ML VIAL SLOW IVP PRN (17:15)
[2023-04-29] MEDS ORDERED: Promethazine HCl 25 MG/ML VIAL IM PRN ×2 (17:15→18:18)
[2023-04-29] MEDS ORDERED: hydrALAZINE 20 MG/ML VIAL SLOW IVP PRN (18:18)
[2023-04-29] MEDS ORDERED: Ipratropium/Albuterol 3 ML NEB NEB PRN (18:18)
[2023-04-29] MEDS ORDERED: Morphine 4 MG/ML VIAL SLOW IVP PRN (18:18)
[2023-04-29] MEDS ORDERED: Ondansetron PF 4 MG/2 ML Vial IVP PRN (18:18)
[2023-04-29] MEDS ORDERED: Ketorolac Tromethamine 30 MG/ML VIAL IVP SCH (18:45)
[2023-04-29] MEDS: D5 1/2 NS w/20 mEq KCL 1,000 ML IV SCH (19:46)
[2023-04-29] MEDS: Ketorolac Tromethamine 30 MG/ML VIAL IVP SCH ×2 (19:46→23:49)
[2023-04-29] MEDS ORDERED: Vancomycin 1 GM in Premix Bag 1 BAG IVPB SCH (20:00)
[2023-04-29] MEDS: Atorvastatin Calcium 10 MG TAB PO SCH (21:56)
[2023-04-29] MEDS: Famotidine/PF 20 mg/2ml Vial SLOW IVP SCH (21:57)
[2023-04-30] MEDS: Piperacillin/Tazobactam 3.375 GM in Sodium Chloride 0.9% 100 ML IVPB SCH ×3 (01:59→17:32)
[2023-04-30] MEDS: D5 1/2 NS w/20 mEq KCL 1,000 ML IV SCH ×2 (02:00→12:15)
[2023-04-30] MEDS: Ketorolac Tromethamine 30 MG/ML VIAL IVP SCH ×4 (05:47→19:46)
[2023-04-30] MEDS: Levothyroxine Sodium 50 MCG TAB PO SCH (05:47)
[2023-04-30] MEDS: Metoclopramide 10 MG/10 ML UDCUP PO SCH ×2 (05:51→12:15)
[2023-04-30 06:27] LABS: #Monocytes 0.6 thou/uL (0.11-0.59); #Neutrophils 12.9 thou/uL (1.40-6.50); %Basophils 0.1 % (0.0-1.0); %Lymphocytes 3.3 % (21.0-51.0); %Monocytes 3.9 % (0.0-10.0); %Neutrophils 91.6 % (42.0-75.0); Hemoglobin 9.7 g/dL (14.0-18.0); Mean Corpuscular HGB CONC 32.6 g/dL (32.0-36.0); Mean Corpuscular Hemoglobin 30.5 pg (27.0-31.0); Mean Corpuscular Volume 93.7 fl (78.0-98.0); Mean Platelet Volume 8.4 fL (7.4-10.4); Platelet Count 595 10x3/uL (130-400); RBC Distribution Width 14.6 % (11.5-14.5); Red Blood Cell (RBC) Count 3.18 mill/uL (4.70-6.10); White Blood Cell (WBC) Count 14.1 10x3/uL (4.8-10.8)
[2023-04-30 08:05] LABS: Chloride 108 mmol/L (98-107); Potassium 3.9 mmol/L (3.5-5.1); Sodium 137 mmol/L (136-145)
[2023-04-30 08:06] LABS: Calcium 7.8 mg/dL (7.8-10.44); Glucose 177 mg/dL (83-110)
[2023-04-30 08:08] LABS: Anion Gap 11 mmol/L (10-20); Carbon Dioxide 22 mmol/L (23-31)
[2023-04-30 08:10] LABS: BUN (Urea Nitrogen) 9 mg/dL (8.4-25.7); Calc. Creatinine Clearance 72 mL/min (70-130); Estimated GFR 91
[2023-04-30] MEDS: Famotidine 20 MG TAB PO SCH ×2 (08:14→19:47)
[2023-04-30] MEDS: Vit A,C & E/Lutein/Minerals Tablet PO SCH ×2 (08:14→19:51)
[2023-04-30] MEDS: levETIRAcetam 500 MG TAB PO SCH ×2 (08:15→19:47)
[2023-04-30] MEDS: Vancomycin HCl 750 MG in Sodium Chloride 0.9% 250 ML 250 ML IVPB SCH ×2 (08:16→19:47)
[2023-04-30] MEDS: Famotidine/PF 20 mg/2ml Vial SLOW IVP SCH ×2 (08:18→19:48)
[2023-04-30] MEDS: Morphine 2 MG/ML VIAL SLOW IVP PRN (09:31)
[2023-04-30] MEDS ORDERED: D5 1/2 NS w/20 mEq KCL 1,000 ML IV SCH (13:35)
[2023-04-30] MEDS ORDERED: Fluconazole 100 MG TAB PO SCH (13:45)
[2023-04-30] MEDS: Atorvastatin Calcium 10 MG TAB PO SCH (19:47)
[2023-05-01] MEDS: Piperacillin/Tazobactam 3.375 GM in Sodium Chloride 0.9% 100 ML IVPB SCH ×3 (01:57→18:26)
[2023-05-01] MEDS: Ketorolac Tromethamine 30 MG/ML VIAL IVP SCH (05:27)
[2023-05-01] MEDS: Levothyroxine Sodium 50 MCG TAB PO SCH (05:27)
[2023-05-01 07:49] LABS: #Eosinphils 0.1 thou/uL (0.0-0.7); #Monocytes 0.9 thou/uL (0.11-0.59); %Basophils 0.3 % (0.0-1.0); %Eosinophils 0.4 % (0.0-10.0); %Lymphocytes 7.5 % (21.0-51.0); %Monocytes 6.4 % (0.0-10.0); %Neutrophils 84.6 % (42.0-75.0); Hemoglobin 11.6 g/dL (14.0-18.0); Mean Corpuscular HGB CONC 32.5 g/dL (32.0-36.0); Mean Corpuscular Hemoglobin 30.4 pg (27.0-31.0); Mean Corpuscular Volume 93.5 fl (78.0-98.0); Platelet Count 721 10x3/uL (130-400); RBC Distribution Width 14.6 % (11.5-14.5); Red Blood Cell (RBC) Count 3.82 mill/uL (4.70-6.10); White Blood Cell (WBC) Count 14.2 10x3/uL (4.8-10.8)
[2023-05-01 08:10] LABS: Anion Gap 11 mmol/L (10-20); BUN (Urea Nitrogen) 6 mg/dL (8.4-25.7); Calc. Creatinine Clearance 71 mL/min (70-130); Calcium 8.1 mg/dL (7.8-10.44); Carbon Dioxide 22 mmol/L (23-31); Chloride 110 mmol/L (98-107); Estimated GFR 91; Glucose 105 mg/dL (83-110); Sodium 139 mmol/L (136-145)
[2023-05-01 08:12] LABS: Vancomycin, Trough 8.3 ug/mL
[2023-05-01] MEDS: Vancomycin HCl 750 MG in Sodium Chloride 0.9% 250 ML 250 ML IVPB SCH (08:22)
[2023-05-01] MEDS: levETIRAcetam 500 MG TAB PO SCH ×2 (08:27→19:53)
[2023-05-01] MEDS: Vit A,C & E/Lutein/Minerals Tablet PO SCH ×2 (08:27→19:52)
[2023-05-01] MEDS: Famotidine 20 MG TAB PO SCH ×2 (08:27→19:53)
[2023-05-01] MEDS: Famotidine/PF 20 mg/2ml Vial SLOW IVP SCH ×2 (08:27→19:15)
[2023-05-01] MEDS: Fluconazole 100 MG TAB PO SCH (08:27)
[2023-05-01] MEDS ORDERED: Ketorolac Tromethamine 30 MG/ML VIAL IVP PRN (08:37)
[2023-05-01] MEDS ORDERED: Vancomycin HCl 500 MG in Sodium Chloride 0.9% 100 ML IVPB SCH (09:15)
[2023-05-01] MEDS: HYDROcodone/Acetaminophen 7.5/325 mg Tablet PO PRN (10:35)
[2023-05-01] MEDS ORDERED: VANCOMYCIN 1.25 GM/250 ML BAG 1.25 GM in Premix Bag 1 BAG IVPB SCH (12:00)
[2023-05-01] MEDS: Vancomycin 1 GM in Premix Bag 1 BAG IVPB SCH (19:52)
[2023-05-01] MEDS: Atorvastatin Calcium 10 MG TAB PO SCH (19:53)
[2023-05-02] MEDS: Piperacillin/Tazobactam 3.375 GM in Sodium Chloride 0.9% 100 ML IVPB SCH ×3 (01:33→18:15)
[2023-05-02] MEDS: HYDROcodone/Acetaminophen 7.5/325 mg Tablet PO PRN ×2 (04:31→21:11)
[2023-05-02] MEDS: Levothyroxine Sodium 50 MCG TAB PO SCH (04:32)
[2023-05-02 07:40] LABS: #Eosinphils 0.4 thou/uL (0.0-0.7); #Monocytes 0.9 thou/uL (0.11-0.59); #Neutrophils 8.9 thou/uL (1.40-6.50); %Basophils 0.3 % (0.0-1.0); %Lymphocytes 10.7 % (21.0-51.0); %Monocytes 7.5 % (0.0-10.0); %Neutrophils 77.6 % (42.0-75.0); Hemoglobin 11.4 g/dL (14.0-18.0); Mean Corpuscular HGB CONC 32.9 g/dL (32.0-36.0); Mean Corpuscular Hemoglobin 30.4 pg (27.0-31.0); Mean Corpuscular Volume 92.5 fl (78.0-98.0); Mean Platelet Volume 8.2 fL (7.4-10.4); Platelet Count 752 10x3/uL (130-400); RBC Distribution Width 14.6 % (11.5-14.5); Red Blood Cell (RBC) Count 3.75 mill/uL (4.70-6.10); White Blood Cell (WBC) Count 11.5 10x3/uL (4.8-10.8)
[2023-05-02 08:11] LABS: Anion Gap 12 mmol/L (10-20); BUN (Urea Nitrogen) 6 mg/dL (8.4-25.7); Calc. Creatinine Clearance 66 mL/min (70-130); Calcium 8.2 mg/dL (7.8-10.44); Carbon Dioxide 25 mmol/L (23-31); Chloride 109 mmol/L (98-107); Estimated GFR 89; Glucose 100 mg/dL (83-110); Potassium 3.7 mmol/L (3.5-5.1); Sodium 142 mmol/L (136-145)
[2023-05-02] MEDS: Famotidine/PF 20 mg/2ml Vial SLOW IVP SCH ×2 (08:58→20:58)
[2023-05-02] MEDS: Vancomycin 1 GM in Premix Bag 1 BAG IVPB SCH ×2 (08:58→21:00)
[2023-05-02] MEDS: levETIRAcetam 500 MG TAB PO SCH ×2 (08:58→21:07)
[2023-05-02] MEDS: Vit A,C & E/Lutein/Minerals Tablet PO SCH ×2 (08:58→21:07)
[2023-05-02] MEDS: Fluconazole 100 MG TAB PO SCH (08:58)
[2023-05-02] MEDS: Famotidine 20 MG TAB PO SCH ×2 (08:58→21:07)
[2023-05-02] MEDS ORDERED: Electrolyte Replacement Protocol 1 EACH FS SCH (15:15)
[2023-05-02 19:37] LABS: Vancomycin, Trough 17.1 ug/mL
[2023-05-02] MEDS: Atorvastatin Calcium 10 MG TAB PO SCH (21:07)
[2023-05-03] MEDS: Piperacillin/Tazobactam 3.375 GM in Sodium Chloride 0.9% 100 ML IVPB SCH ×2 (01:59→10:00)
[2023-05-03] MEDS: Levothyroxine Sodium 50 MCG TAB PO SCH (05:13)
[2023-05-03 06:45] LABS: #Basophils 0.1 thou/uL (0.0-0.2); #Eosinphils 0.4 thou/uL (0.0-0.7); #Monocytes 0.8 thou/uL (0.11-0.59); #Neutrophils 7.8 thou/uL (1.40-6.50); %Basophils 0.5 % (0.0-1.0); %Eosinophils 3.9 % (0.0-10.0); %Lymphocytes 11.9 % (21.0-51.0); %Monocytes 7.4 % (0.0-10.0); Hemoglobin 12.1 g/dL (14.0-18.0); Mean Corpuscular Hemoglobin 30.1 pg (27.0-31.0); Mean Platelet Volume 8.1 fL (7.4-10.4); Platelet Count 767 10x3/uL (130-400); RBC Distribution Width 14.6 % (11.5-14.5); Red Blood Cell (RBC) Count 4.02 mill/uL (4.70-6.10); White Blood Cell (WBC) Count 10.4 10x3/uL (4.8-10.8)
[2023-05-03 07:10] LABS: Phosphorus 3.7 mg/dL (2.3-4.7)
[2023-05-03 07:10] LABS: Anion Gap 13 mmol/L (10-20); BUN (Urea Nitrogen) 7 mg/dL (8.4-25.7); Calc. Creatinine Clearance 62 mL/min (70-130); Calcium 8.7 mg/dL (7.8-10.44); Carbon Dioxide 30 mmol/L (23-31); Chloride 105 mmol/L (98-107); Estimated GFR 87; Glucose 102 mg/dL (83-110); Magnesium 2.1 mg/dL (1.6-2.6); Potassium 3.9 mmol/L (3.5-5.1); Sodium 144 mmol/L (136-145)
[2023-05-03] MEDS: Vancomycin 1 GM in Premix Bag 1 BAG IVPB SCH (08:14)
[2023-05-03] MEDS: Famotidine 20 MG TAB PO SCH (08:14)
[2023-05-03] MEDS: Fluconazole 100 MG TAB PO SCH (08:14)
[2023-05-03] MEDS: Vit A,C & E/Lutein/Minerals Tablet PO SCH (08:14)
[2023-05-03] MEDS: levETIRAcetam 500 MG TAB PO SCH (08:14)
[2023-05-03] MEDS: Famotidine/PF 20 mg/2ml Vial SLOW IVP SCH (08:22)
[2023-05-03] MEDS: Morphine 2 MG/ML VIAL SLOW IVP PRN (09:27)
[2023-05-03 12:02] VITALS: BP 133/78; TEMP 97.4
== END 2023-05-03 13:30 | disposition home or self-care (01) | DRG 853 ==
LOC: ERS 10:30 → T4-A 15:05
PROVIDERS: ADMIT Emergency Medicine; ATTEND Internal Medicine
PROC: 3E03329 Introduction of Other Anti-infective into Peripheral Vein, Percutaneous Approach (ICD-10-PCS; 2023-04-28)
PROC: 0D1N4Z4 Bypass Sigmoid Colon to Cutaneous, Percutaneous Endoscopic Approach (ICD-10-PCS; principal; 2023-04-29)
PROC: 0DTN4ZZ Resection of Sigmoid Colon, Percutaneous Endoscopic Approach (ICD-10-PCS; 2023-04-29)
PROC: 0W9H30Z Drainage of Retroperitoneum with Drainage Device, Percutaneous Approach (ICD-10-PCS; 2023-04-29)
PROC: 0K9P30Z Drainage of Left Hip Muscle with Drainage Device, Percutaneous Approach (ICD-10-PCS; 2023-05-03)
DX: A41.9 Sepsis, unspecified organism (principal); K65.1 Peritoneal abscess; T81.43XA Infection following a procedure, organ and space surgical site, initial encounter; E87.20 Acidosis, unspecified; K57.20 Diverticulitis of large intestine with perforation and abscess without bleeding; E87.1 Hypo-osmolality and hyponatremia; E44.0 Moderate protein-calorie malnutrition; R65.20 Severe sepsis without septic shock; E03.9 Hypothyroidism, unspecified; G40.909 Epilepsy, unspecified, not intractable, without status epilepticus; I12.9 Hypertensive chronic kidney disease with stage 1 through stage 4 chronic kidney disease, or unspecified chronic kidney disease; D53.9 Nutritional anemia, unspecified; D75.839 Thrombocytosis, unspecified; N18.2 Chronic kidney disease, stage 2 (mild); Z88.2 Allergy status to sulfonamides; Z79.899 Other long term (current) drug therapy; Z90.49 Acquired absence of other specified parts of digestive tract; Z98.890 Other specified postprocedural states
CPT/HCPCS: 36415; 36416; 49060; 71045; 74177; 77002; 80048; 80053; 80202; 81001; 83605; 83690; 83735; 84100; 85025; 85610; 85730; 87070; 87076; 87205; 88307; 96365; 96367; 97139; A4649; C1729; J0171; J1100; J1650; J1885; J2001; J2250; J2272; J2405; J2543; J2704; J3010; J3370; J3370-JW; J3480; J3490; J7050; Q9967; S0020

== ENCOUNTER 2023-06-02 12:21 | Outpatient (CLI) | payer MEDICARE, BC | END 2023-06-02 12:22 | disposition home or self-care (01) | LOC: BICCT 12:21 | PROVIDERS: ATTEND Specialist | DX: K68.12 Psoas muscle abscess (principal); K76.89 Other specified diseases of liver; N28.89 Other specified disorders of kidney and ureter; N20.0 Calculus of kidney; K57.30 Diverticulosis of large intestine without perforation or abscess without bleeding; S36.892A Contusion of other intra-abdominal organs, initial encounter; R93.5 Abnormal findings on diagnostic imaging of other abdominal regions, including retroperitoneum; Z98.890 Other specified postprocedural states | CPT/HCPCS: 74177; Q9967 ==

== ENCOUNTER 2023-08-18 11:53 | Outpatient (CLI) | payer MEDICARE, BC ==
[2023-08-18 12:49] LABS: #Basophils 0.1 10x3/uL (0.0-0.2); #Eosinphils 0.3 10x3/uL (0.0-0.5); #Monocytes 0.9 10x3/uL (0.0-1.1); #Neutrophils 5.4 10x3/uL (1.5-8.4); %Basophils 0.6 % (0.0-2.0); %Eosinophils 3.6 % (0.0-6.0); %Monocytes 10.2 % (0.0-10.0); %Neutrophils 63.2 % (40.0-75.0); Hematocrit 47.5 % (38.8-50.0); Hemoglobin 15.3 g/dL (13.5-17.5); Mean Corpuscular HGB CONC 32.2 g/dL (32.0-36.0); Mean Corpuscular Hemoglobin 30.1 pg (27.0-33.0); Mean Corpuscular Volume 93.3 fl (81.2-95.1); Mean Platelet Volume 8.4 fl (7.4-10.4); Platelet Count 254 10x3/uL (150-450); RBC Distribution Width 14.3 % (11.5-14.5); Red Blood Cell (RBC) Count 5.09 10x6/uL (4.32-5.72); White Blood Cell (WBC) Count 8.5 10x3/uL (3.5-10.5)
[2023-08-18 13:10] LABS: Anion Gap 14 mmol/L (10-20); BUN (Urea Nitrogen) 18 mg/dL (8.4-25.7); Calc. Creatinine Clearance 0 mL/min (70-130); Calcium 9.1 mg/dL (7.8-10.44); Carbon Dioxide 27 mmol/L (23-31); Chloride 105 mmol/L (98-107); Estimated GFR 84; Glucose 95 mg/dL (83-110); Potassium 4.1 mmol/L (3.5-5.1); Sodium 142 mmol/L (136-145)
[2023-08-18 18:26] LABS: Hemoglobin A1c 5.1 % (4.0-6.0)
== END 2023-08-18 11:54 | disposition home or self-care (01) ==
LOC: LABBT 11:53
PROVIDERS: ATTEND Specialist
DX: Z01.818 Encounter for other preprocedural examination (principal); L02.214 Cutaneous abscess of groin; Z93.3 Colostomy status
CPT/HCPCS: 71046; 80048; 83036; 85025; 93005; 93010

== ENCOUNTER 2023-08-18 12:00 | Inpatient (IN) | payer MEDICARE, BC ==
[2023-08-23] MEDS ORDERED: Acetaminophen 500 MG TAB ONE (11:51)
[2023-08-23] MEDS ORDERED: Ketorolac Tromethamine 30 MG/ML VIAL ONE ×2 (11:51→19:27)
[2023-08-23] MEDS ORDERED: fentaNYL 50 mcg/mL 1 mL Vial ONE ×3 (11:58→14:14)
[2023-08-23] MEDS ORDERED: Bupivacaine 0.25% HCL 30 ML VIAL ONE ×2 (11:58→13:51)
[2023-08-23] MEDS ORDERED: Midazolam HCl 2 mg/2 ml Vial ONE (11:58)
[2023-08-23] MEDS ORDERED: EPINEPHrine 1 MG/ML AMP ONE (13:51)
[2023-08-23] MEDS ORDERED: SUGAMMADEX SODIUM 200 MG/2 ML VIAL ONE (14:14)
[2023-08-23] MEDS ORDERED: Famotidine/PF 20 mg/2ml Vial ONE (14:14)
[2023-08-23] MEDS ORDERED: Ondansetron PF 4 MG/2 ML Vial ONE ×2 (14:14→14:45)
[2023-08-23] MEDS ORDERED: Sodium Chloride 0.9% 100 ML ONE (14:33)
[2023-08-23] MEDS ORDERED: cefOXitin 2 GM VIAL ONE (14:33)
[2023-08-23] MEDS ORDERED: ePHEDrine Sulfate 50 MG/10 ML VIAL ONE (14:45)
[2023-08-23] MEDS ORDERED: PROPOFOL 200 MG/20 ML VIAL ONE (14:45)
[2023-08-23] MEDS ORDERED: Metoprolol Tartrate 5 MG/5 ML VIAL ONE (14:45)
[2023-08-23] MEDS ORDERED: PHENYLEPHRINE-NS 100 MCG/ML 10 ML SYRINGE ONE (14:45)
[2023-08-23] MEDS ORDERED: Lidocaine 1% PF 5 ML VIAL ONE (14:45)
[2023-08-23] MEDS ORDERED: Rocuronium Bromide 10 MG/ML (10ML VIAL) ONE (14:45)
[2023-08-23] MEDS ORDERED: Esmolol 100 MG/10 ML VIAL ONE (14:45)
[2023-08-23] MEDS ORDERED: hydrALAZINE 20 MG/ML VIAL ONE (16:08)
[2023-08-23] MEDS ORDERED: Ondansetron PF 4 MG/2 ML Vial IVP PRN (18:24)
[2023-08-23] MEDS ORDERED: Morphine 4 MG/ML VIAL SLOW IVP PRN ×2 (18:24→18:31)
[2023-08-23] MEDS ORDERED: Promethazine HCl 25 MG/ML VIAL IM PRN (18:24)
[2023-08-23] MEDS ORDERED: Ipratropium/Albuterol 3 ML NEB NEB PRN (18:24)
[2023-08-23] MEDS ORDERED: Morphine 2 MG/ML VIAL SLOW IVP PRN (18:24)
[2023-08-23] MEDS ORDERED: hydrALAZINE 20 MG/ML VIAL SLOW IVP PRN (18:24)
[2023-08-23] MEDS ORDERED: Promethazine HCl 25 MG/ML VIAL IM/IV PRN (19:00)
[2023-08-23] MEDS ORDERED: Ondansetron HCl/PF 4 MG/2 ML Vial IVP PRN (19:00)
[2023-08-23] MEDS ORDERED: D5 1/2 NS w/20 mEq KCL 1,000 ML ONE (19:23)
[2023-08-23] MEDS: Ketorolac Tromethamine 30 MG/ML VIAL IVP SCH (19:25)
[2023-08-23] MEDS: D5 1/2 NS w/20 mEq KCL 1,000 ML IV SCH (19:26)
[2023-08-23 20:47] VITALS: BMI 22.6
[2023-08-23] MEDS: Famotidine 20 MG TAB PO SCH (20:48)
[2023-08-23] MEDS: levETIRAcetam 500 MG TAB PO SCH (20:48)
[2023-08-23] MEDS: Atorvastatin Calcium 10 MG TAB PO SCH (20:48)
[2023-08-23] MEDS: Famotidine/PF 20 mg/2ml Vial SLOW IVP SCH (20:48)
[2023-08-24] MEDS: Ketorolac Tromethamine 30 MG/ML VIAL IVP SCH ×4 (02:15→20:12)
[2023-08-24] MEDS: D5 1/2 NS w/20 mEq KCL 1,000 ML IV SCH (02:16)
[2023-08-24] MEDS: Levothyroxine Sodium 50 MCG TAB PO SCH (05:00)
[2023-08-24 05:39] LABS: #Monocytes 0.9 thou/uL (0.11-0.59); #Neutrophils 10.4 thou/uL (1.40-6.50); %Basophils 0.2 % (0.0-1.0); %Eosinophils 0.1 % (0.0-10.0); %Monocytes 7.1 % (0.0-10.0); %Neutrophils 86.3 % (42.0-75.0); Hematocrit 43.8 % (42.0-52.0); Hemoglobin 14.7 g/dL (14.0-18.0); Mean Corpuscular HGB CONC 33.6 g/dL (32.0-36.0); Mean Corpuscular Hemoglobin 31.2 pg (27.0-31.0); Mean Platelet Volume 8.7 fL (7.4-10.4); Platelet Count 201 10x3/uL (130-400); RBC Distribution Width 14.2 % (11.5-14.5); Red Blood Cell (RBC) Count 4.71 mill/uL (4.70-6.10); White Blood Cell (WBC) Count 12.1 10x3/uL (4.8-10.8)
[2023-08-24 06:11] LABS: Anion Gap 13 mmol/L (10-20); BUN (Urea Nitrogen) 24 mg/dL (8.4-25.7); Calc. Creatinine Clearance 47 mL/min (70-130); Calcium 8.3 mg/dL (7.8-10.44); Carbon Dioxide 22 mmol/L (23-31); Chloride 104 mmol/L (98-107); Estimated GFR 66; Glucose 156 mg/dL (83-110); Potassium 4.2 mmol/L (3.5-5.1); Sodium 135 mmol/L (136-145)
[2023-08-24] MEDS ORDERED: D5 0.9% NS w/ 20 mEq KCl 1,000 ML IV SCH (07:45)
[2023-08-24] MEDS ORDERED: FLU VACC QS2023(65UP)/MF59C/PF 60 MCG/0.5 ML SYRINGE IM ONE (09:00)
[2023-08-24] MEDS: levETIRAcetam 500 MG TAB PO SCH ×2 (09:33→20:12)
[2023-08-24] MEDS: D5 0.9% NS w/ 20 mEq KCl 1,000 ML IV SCH (14:56)
[2023-08-24] MEDS ORDERED: HYDROcodone/Acetaminophen 7.5/325 mg Tablet PO PRN (18:06)
[2023-08-24] MEDS: Famotidine 20 MG TAB PO SCH (20:12)
[2023-08-24] MEDS: Atorvastatin Calcium 10 MG TAB PO SCH (20:12)
[2023-08-24] MEDS: Famotidine/PF 20 mg/2ml Vial SLOW IVP SCH (20:12)
[2023-08-25] MEDS: Ketorolac Tromethamine 30 MG/ML VIAL IVP SCH ×2 (02:46→08:48)
[2023-08-25] MEDS: D5 0.9% NS w/ 20 mEq KCl 1,000 ML IV SCH (03:56)
[2023-08-25] MEDS: Levothyroxine Sodium 50 MCG TAB PO SCH (05:25)
[2023-08-25] MEDS: levETIRAcetam 500 MG TAB PO SCH (08:47)
[2023-08-25 09:00] VITALS: BP 178/82; TEMP 97.8
== END 2023-08-25 13:01 | disposition home or self-care (01) | DRG 331 ==
LOC: SURG A 08-23 11:10 → SURG B 08-23 20:27
PROVIDERS: ADMIT Specialist; ATTEND Specialist
PROC: 0DBE4ZZ Excision of Large Intestine, Percutaneous Endoscopic Approach (ICD-10-PCS; principal; 2023-08-23)
PROC: 3E033XZ Introduction of Vasopressor into Peripheral Vein, Percutaneous Approach (ICD-10-PCS; 2023-08-23)
DX: Z43.3 Encounter for attention to colostomy (principal); E78.00 Pure hypercholesterolemia, unspecified; K21.9 Gastro-esophageal reflux disease without esophagitis; F32.A Depression, unspecified; Z98.890 Other specified postprocedural states; Z79.899 Other long term (current) drug therapy; Z88.8 Allergy status to other drugs, medicaments and biological substances; Z82.49 Family history of ischemic heart disease and other diseases of the circulatory system
CPT/HCPCS: 36415; 80048; 85025; 88304; A4649; J0171; J0360; J0694; J1650; J1885; J2250; J2405; J2704; J3010; J3480; J3490; S0020; S0028

== ENCOUNTER 2024-01-27 14:37 | Outpatient (CLI) | payer MEDICARE, BC ==
[2024-01-27 15:54] LABS: #Basophils 0.03 10x3/uL (0.0-0.2); #Eosinphils 0.25 10x3/uL (0.0-0.5); #Monocytes 0.98 10x3/uL (0.0-1.1); #Neutrophils 4.68 10x3/uL (1.5-8.4); %Basophils 0.4 % (0.0-2.0); %Eosinophils 3.3 % (0.0-6.0); %Neutrophils 61.9 % (40.0-75.0); Hematocrit 45.1 % (38.8-50.0); Hemoglobin 15.3 g/dL (13.5-17.5); Mean Corpuscular HGB CONC 33.9 g/dL (32.0-36.0); Mean Corpuscular Hemoglobin 32.1 pg (27.0-33.0); Mean Corpuscular Volume 94.7 fl (81.2-95.1); Mean Platelet Volume 8.9 fl (7.4-10.4); Platelet Count 254 10x3/uL (150-450); RBC Distribution Width 13.9 % (11.5-14.5); Red Blood Cell (RBC) Count 4.76 10x6/uL (4.32-5.72); White Blood Cell (WBC) Count 7.6 10x3/uL (3.5-10.5)
[2024-01-27 16:20] LABS: Anion Gap 10 mmol/L (10-20); BUN (Urea Nitrogen) 20 mg/dL (8.4-25.7); Calc. Creatinine Clearance 0 mL/min (70-130); Calcium 8.9 mg/dL (7.8-10.44); Carbon Dioxide 30 mmol/L (23-31); Chloride 105 mmol/L (98-107); Estimated GFR 85; Glucose 85 mg/dL (83-110); Potassium 4.4 mmol/L (3.5-5.1); Sodium 141 mmol/L (136-145)
== END 2024-01-27 14:38 | disposition home or self-care (01) ==
LOC: LABBT 14:37
PROVIDERS: ATTEND Specialist
DX: Z01.818 Encounter for other preprocedural examination (principal); K40.91 Unilateral inguinal hernia, without obstruction or gangrene, recurrent
CPT/HCPCS: 71046; 80048; 85025; 93005; 93010

== ENCOUNTER 2024-10-18 13:10 | Outpatient (CLI) | payer MEDICARE, BC | END 2024-10-18 13:11 | disposition home or self-care (01) | LOC: BICRAD 13:10 | PROVIDERS: ATTEND Podiatrist | DX: M79.5 Residual foreign body in soft tissue (principal) ==